=== PATIENT | male | born 1940 | race Caucasian/White ===

== ENCOUNTER 2019-04-18 21:09 | Emergency (ER) | payer OTHER ==
[~2019-04-18] VITALS: Ht 188 cm; Wt 124.7 kg
[2019-04-18 21:10] VITALS: BP 162/84
--- NOTE | 2019-04-18 22:25 | NUR ---
PT BROUGHT TO ER BED 4 VIA W/C
--- NOTE | 2019-04-18 22:57 | NUR ---
78 Y/O M BIBA C/O BACK PAIN XLAST NIGHT, 5/10 SHARP AND CONSTANT. TOOK ASPIRIN AT 1800, NO RELIEF OF PAIN. PER EMS BLOOD SUGAR 116. LT SIDE TENDER TO TOUCH. FAMILY AT BEDSIDE. +COLOSTOMY BAG. BOWEL SOUNDS HEARD X4. WILL CONTINUE TO MONITOR .
--- NOTE | 2019-04-18 23:00 | NUR ---
PT UNABLE TO PROVIDE URINE SAMPLE AT THIS TIME.
--- NOTE | 2019-04-18 23:26 | NUR ---
DR. AREVALO BEDSIDE EVALUATING PT
[2019-04-18] MEDS ORDERED: NACL 0.9% 1,000 ML IV ONE (23:30)
[2019-04-18] MEDS ORDERED: MORPHINE SULFATE 2 MG/ML SYR IVP ONE (23:30)
[2019-04-18] MEDS ORDERED: ONDANSETRON 4 MG/2 ML VIAL IVP ONE (23:30)
[2019-04-18 23:59] LABS: BASOPHILS % (AUTO) 0.5 % (0.0-2.0); EOSINOPHILS # (AUTO) 0.1 K/uL (0-0.4); EOSINOPHILS % (AUTO) 1.3 % (0.0-4.0); HEMATOCRIT 45.3 % (36-52); HEMOGLOBIN 14.8 g/dL (12.0-18.0); LYMPHOCYTES # (AUTO) 1.5 K/uL (2.0-11.5); LYMPHOCYTES % (AUTO) 18.9 % (20.5-51.1); MEAN CORPUSCULAR HEMOGLOBIN 29 pg (27-31); MEAN CORPUSCULAR HGB CONC 33 g/dL (33-37); MEAN CORPUSCULAR VOLUME 89.9 fL (80-94); MONOCYTES # (AUTO) 0.6 K/uL (0.8-1.0); MONOCYTES % (AUTO) 7.4 % (1.7-9.3); NEUTROPHILS # (AUTO) 5.8 K/uL (1.8-7.7); NEUTROPHILS % (AUTO) 71.9 % (42.2-75.2); PLATELET COUNT (AUTO) 291 K/uL (140-450); RED BLOOD CELL COUNT(AUTO) 5.04 MIL/uL (4.20-6.10); RED CELL DISTRIBUTION WIDTH 14.3 % (11.6-13.7)
[2019-04-19 00:09] LABS: ANION GAP 14.5 (8-16); CARBON DIOXIDE 21.4 mmol/L (21-32); CHLORIDE 108 mmol/L (98-107); CREATININE 1.2 mg/dL (0.7-1.3); GLUCOSE 98 mg/dL (74-106); POTASSIUM 3.9 mmol/L (3.5-5.1); SODIUM SERUM 140 mmol/L (136-145); UREA NITROGEN, BLOOD 16 mg/dL (7-18)
[2019-04-19 00:22] LABS: ALBUMIN 3.6 g/dL (3.4-5.0); ASPARTATE AMINOTRANSFERASE 14 U/L (15-37); LIPASE 194 U/L (73-393); TOTAL BILIRUBIN 0.5 mg/dL (0.0-1.0)
--- NOTE | 2019-04-19 00:29 | NUR ---
PT TAKEN TO CT VIA W/C
[2019-04-19 01:03] VITALS: BP 162/81
--- NOTE | 2019-04-19 01:05 | NUR ---
PT SITTING UPRIGHT IN BED . VSS AT THIS TIME. WILL CONTINUE TO MONITOR.
--- NOTE | 2019-04-19 02:00 | NUR ---
PT UNABLE TO PROVIDE URINE SAMPLE AT THIS TIME. ERMD MADE AWARE. NO NEW ORDERS AT THIS TIME
[2019-04-19] MEDS ORDERED: KETOROLAC 30 MG/ML VIAL IVP ONE (02:30)
--- NOTE | 2019-04-19 02:44 | NUR ---
Patient discharged with v/s stable. Written and verbal after care instructions given and explained. Patient alert, oriented and verbalized understanding of instructions. Ambulatory with steady gait. All questions addressed prior to discharge. ID band removed. Patient advised to follow up with PMD. Rx of norco and naprosyn given. Patient educated on indication of medication including possible reaction and side effects. Opportunity to ask questions provided and answered.
== END 2019-04-19 02:44 | disposition home or self-care (01) ==
LOC: MED 21:09
DX: M54.42 Lumbago with sciatica, left side (principal); E11.9 Type 2 diabetes mellitus without complications; I10 Essential (primary) hypertension; Z98.890 Other specified postprocedural states; Z85.528 Personal history of other malignant neoplasm of kidney
CPT/HCPCS: 36415; 74176; 80053; 83690; 85025; 96374; 96375; 99283; J1885; J2270; J2405; J7030